=== PATIENT | female | born 1985 ===

== ENCOUNTER 2024-06-07 10:43 | Outpatient (CLI) | payer SELFPAY ==
--- NOTE | ~2024-06-07 | US_ITS ---
Upper back ULTRASOUND (Doppler ultrasound interrogation techniques used as needed for this exam.) Ordering provider: Mary Haro, [employer] History: . Mass of subcutaneous on tissue of back . Comparison: None. FINDINGS/impression: No definite abnormality seen. Reviewed, dictated and finalized at location A.
== END 2024-06-07 10:44 | disposition home or self-care (01) ==
PROVIDERS: PCP Registered Nurse; Visit Provider Registered Nurse
DX: R22.2 Localized swelling, mass and lump, trunk (principal)
CPT/HCPCS: 76604